=== PATIENT | male | born 1970 | race Hispanic/Latino ===

== ENCOUNTER 2020-10-26 20:39 | Emergency (ER) | payer OTHER, BC ==
[~2020-10-26 20:39] MED LIST: CLINDAMYCIN300 M1 PO; PERCOCET 5/325M1 TAB PO
[2020-10-26] MEDS ORDERED: NAPROXEN500 MG PO (23:29)
[2020-10-27 00:27] VITALS: BP 152/90
== END 2020-10-26 23:51 | disposition home or self-care (01) | DRG 552 ==
LOC: ED 20:39
DX: S33.5XXA Sprain of ligaments of lumbar spine, initial encounter (principal); S13.9XXA Sprain of joints and ligaments of unspecified parts of neck, initial encounter; M25.562 Pain in left knee; V49.9XXA Car occupant (driver) (passenger) injured in unspecified traffic accident, initial encounter